=== PATIENT | female | born 1960 | race Caucasian/White ===

== ENCOUNTER 2018-07-06 12:06 | Observation (INO) | payer SELFPAY ==
[2018-07-06 12:29] LABS: #Eosinphils 0.1 thou/uL (0.0-0.7); #Lymphocytes 2.6 thou/uL (1.20-3.40); #Monocytes 0.5 thou/uL (0.11-0.59); #Neutrophils 4.9 thou/uL (1.40-6.50); %Basophils 0.4 % (0.0-1.0); %Eosinophils 1.1 % (0.0-10.0); %Lymphocytes 32.2 % (21.0-51.0); %Monocytes 6.4 % (0.0-10.0); %Neutrophils 59.8 % (42.0-75.0); Hemoglobin 12.4 g/dL (12.0-16.0); Mean Corpuscular HGB CONC 32.7 g/dL (32.0-36.0); Mean Corpuscular Hemoglobin 30.2 pg (27.0-31.0); Mean Corpuscular Volume 92.3 fL (78.0-98.0); Mean Platelet Volume 8.1 fL (7.4-10.4); Platelet Count 270 thou/uL (130-400); RBC Distribution Width 11.6 % (11.5-14.5); Red Blood Cell (RBC) Count 4.12 mill/uL (4.20-5.40); White Blood Cell (WBC) Count 8.2 thou/uL (4.8-10.8)
[2018-07-06 12:34] LABS: INR-International Normal Ratio 0.9; PTT 26.8 SEC (22.9-36.1); Prothrombin Time 12.4 SEC (12.0-14.7)
[2018-07-06 13:15] LABS: Albumin 4.4 g/dL (3.5-5.0)
[2018-07-06 13:16] LABS: Calcium 9.4 mg/dL (7.8-10.44); Chloride 105 mmol/L (98-107); Potassium 3.5 mmol/L (3.5-5.1); Sodium 140 mmol/L (136-145)
[2018-07-06 13:17] LABS: Globulin 3.2 g/dL (2.4-3.5); Glucose 111 mg/dL (70-105); Protein, Total 7.6 g/dL (6.0-8.3)
[2018-07-06 13:19] LABS: Anion Gap 16 mmol/L (10-20); Bilirubin, Total 0.4 mg/dL (0.2-1.2); Carbon Dioxide 23 mmol/L (22-29)
[2018-07-06 13:20] LABS: Alkaline Phosphatase 69 U/L (40-150); Calc. Creatinine Clearance 0 mL/min (70-130); Estimated GFR-MDRD 64
[2018-07-06 13:21] LABS: BUN (Urea Nitrogen) 13 mg/dL (9.8-20.1)
[2018-07-06 13:22] LABS: AST (SGOT) 16 U/L (5-34)
[2018-07-06 13:23] LABS: ALT (SGPT) Less than 7 U/L (8-55); CK (CPK) 326 U/L (29-168)
--- NOTE | 2018-07-06 13:39 | CT ---
CT BRAIN: DATE: 07/06/2018. PROVIDED CLINICAL HISTORY: Right-sided facial droop and slurred speech. FINDINGS: Comparison 11/22/2016. The ventricular system appears normal in size and morphology. There is no ash dence for intracranial hemorrhage or mass effect. Chronic microvascular ischemic changes involving t he cerebral white matter appear similar to the prior study. The extracranial soft tissues and osseou s structures demonstrate an unremarkable CT appearance. IMPRESSION: No evidence for intracranial hemorrhage or mass effect. Findings communicated to Dr. Escobar at 12:28 p.m. 07/06/2018. CODE CR POS: VIK
--- NOTE | 2018-07-06 13:53 | CT ---
CT ANGIOGRAM GREAT VESSELS NECK WITH IV CONTRAST AND 3D MIP RECONSTRUCTIONS CT ANGIOGRAM BRAIN WITH IV CONTRAST AND 3D MIP RECONSTRUCTIONS: PROVIDED CLINICAL HISTORY: Slurred speech and facial droop. FINDINGS: There is a common origin of the innominate and left common carotid arteries. The great vessels demon strate an otherwise unremarkable CT angiographic appearance. No evidence for significant stenosis. Multiple right-sided thyroid lobe nodules are seen, the largest at the superior pole measuring about 1.4 cm. The visualized lung apices appear clear. CT angiogram of the brain demonstrates no evidence for focal vessel stenosis, branch occlusion, or an eurysm. IMPRESSION: 1. Normal CT angiogram of the great vessels of the neck. 2. Normal CT angiogram of the brain. 3. Right-sided thyroid lobe nodules for which nonemergent thyroid ultrasound is recommended. Results discussed with Dr. Escobar via telephone 12:33 p.m. 07/06/2018. CODE CR POS: OG
[2018-07-06 14:04] LABS: Bilirubin Negative (Negative); Blood, Urine Negative (Negative); Clarity CLEAR (Clear); Glucose, Urine (Dipstick) Negative (Negative); Leukocyte Negative (Negative); Nitrite Negative (Negative); Protein, Urine (Dipstick) Negative (Neg-Trace); Specific Gravity, Urine 1.013 (1.002-1.036); Urobilinogen 0.2 mg/dL (0.2-1.0)
[2018-07-06 14:12] LABS: Amphetamine Not Detected (NotDetected); Barbiturates Screen Not Detected (NotDetected); Benzodiazepine Screen Not Detected (NotDetected); Cocaine Metabolite Screen Not Detected (NotDetected); Medtox Control Line Valid? VALID (VALID); Medtox Reader # READER 4; Methadone Not Detected (NotDetected); Methamphetamine Not Detected (NotDetected); Opiate Screen Not Detected (NotDetected); Oxycodone Screen Not Detected (NotDetected); Phencyclidine (PCP) Not Detected (NotDetected); THC/Cannabinoid Screen Not Detected (NotDetected); Tricyclic Screen Not Detected (NotDetected)
[2018-07-06] MEDS ORDERED: ISOVUE-370 76%-LOCM 1 ML ONE (14:12)
[2018-07-06] MEDS ORDERED: Aspirin Chewable 81 MG TAB ONE (14:26)
[2018-07-06 16:30] VITALS: BMI 31.8
[2018-07-06] MEDS: Sodium Chloride 0.9% 1,000 ML IV SCH (16:53)
[2018-07-06] MEDS ORDERED: Ondansetron PF 4 MG/2 ML Vial IVP PRN (17:15)
[2018-07-06] MEDS ORDERED: Ondansetron ODT 4 MG TAB PO PRN (17:15)
[2018-07-06] MEDS ORDERED: Acetaminophen 325 MG TAB PO PRN (17:15)
--- NOTE | 2018-07-06 18:04 | HP ---
CHIEF COMPLAINT: High blood pressure and right facial droop. HISTORY OF PRESENT ILLNESS: Ms. Smart is a pleasant 58-year-old woman with a background history of CVA two years ago, who states she came in due to her daughter being concerned about her blood pressure being high. Blood pressure at home was in the 150s systolic. The patient denies any associated symptoms such as headaches, dizziness, or blurred vision. According to the ED note, the family had noticed a right-sided facial droop. However, the patient insists this is her normal baseline since the previous stroke. She states she often has difficulties with her speech being slow, but states this is not new for her. The floor nurse did confirm with the patient's daughter that her speech is at baseline. The right side of her face seemed to be drooping more than usual, particularly the right eyelid. At this present time, the patient is without any complaints. She denies having any headache. Denies any dizziness. Has not been unwell in recent days. She follows with a primary care physician at [facility]. According to the family, she has not been taking her antihypertensives. It was confirmed by her records that she has not refilled her medicines in approximately 6 months. The patient insists that she does check her blood pressure at home and takes her antihypertensives. REVIEW OF SYSTEMS: The patient denies any fevers, chills, or sweats. Denies having again any headaches or dizziness. No blurred vision. Per patient, no speech changes. She does have some slow and at times slurred speech, but this is at baseline. No nausea or vomiting. No chest pain, palpitations, or shortness of breath. No abdominal pain or cramping. She reports moving her bowels as normal. Denies having any urinary symptoms. All other review of systems are negative. ALLERGIES: 1. CODEINE. 2. SULFA. CURRENT MEDICATIONS: Per family and record, she is noncompliant with her antihypertensives. She should be on; 1. Amlodipine 5 mg p.o. daily. 2. Lisinopril 20 mg p.o. daily. 3. Metoprolol 75 mg p.o. twice daily. PAST MEDICAL HISTORY: 1. Previous CVA x2 years ago. 2. Hypertension. 3. Noncompliance with medications. 4. Personality disorder. PAST SURGICAL HISTORY: Tubal ligation. SOCIAL HISTORY: The patient lives alone. Denies any alcohol use, tobacco use, or illicit drug use. PHYSICAL EXAMINATION: GENERAL: The patient appears well developed, well nourished, and is in no acute distress. VITAL SIGNS: Temperature 98.5, pulse 60, respirations 20, O2 saturation 98% on room air, and BP 162/83. HEENT: Normocephalic and atraumatic. Pupils are equal, round, and reactive to light. Oropharynx is clear. NECK: Supple. No lymphadenopathy. There is notable drooping to the right side of her face including a slight droop to the right corner of the mouth and the right eyelid. Per patient, facial sensation is intact. Slight droop with smiling on the right. Otherwise, facial movements intact. LUNGS: Clear to auscultation bilaterally. CARDIAC: Regular rate and rhythm without audible murmurs, rubs, or gallops. ABDOMEN: Soft, nontender, nondistended. Normoactive bowel sounds present. No renal angle tenderness. No guarding or rigidity. EXTREMITIES: Power 5/5 in all limbs. The patient's sensation is intact in all limbs and equal bilaterally. No edema or calf tenderness or swelling. NEUROLOGIC: Alert and oriented x3. No focal neurology except for right facial drooping which per patient states that is chronic. No tongue deviation. No cerebellar signs. SKIN: Without rash or jaundice. LABORATORY DATA: White blood count 8.2, hemoglobin 12.4, hematocrit 38, platelets 270. Coags unremarkable. Sodium 140, potassium 3.5, BUN 13, creatinine 0.90, GFR 64, glucose 111, total bilirubin 0.4, AST 16, ALT less than 7, alkaline phosphatase 69, CK 326. Troponin 1-. Albumin 4.4. Urinalysis negative. Urine tox screen negative. IMAGING DATA: 1. CT brain, 07/06/2018. No evidence for intracranial hemorrhage or mass effect. 2. CT angiogram of head and neck, 07/06/2018. Normal CT angiogram of the great vessels of the neck and brain. There was right-sided thyroid lobe nodules for which nonemergent thyroid ultrasound was recommended. 3. Last echo was done in November 2016 showing an EF of 50% to 55% with overall normal left ventricular function. Left atrium mildly dilated. Mild mitral regurgitation and mild tricuspid regurgitation present. IMPRESSION AND PLAN: Ms. Smart is a very pleasant 58-year-old woman who is being admitted for management of the following; 1. Right facial droop worse than baseline. Imaging studies completed thus far including CT of the brain and CT angiogram of the head and neck are unremarkable. The patient awaiting MRI of the brain. Per patient, she is at her baseline. However, daughter reported to the floor nurse that she has new droop to the right eyelid and the right lip seems to be drooping more than normal. I have left a voice mail to her daughter, Dorothea Garcia to obtain history as the patient denies any symptoms at this present time or earlier today. 2. Hypertension, uncontrolled due to noncompliance. Per patient, she continues checking her blood pressure and taking medicines at home. However, it appears that she has not filled her medications in 6 months. She also seems to be taking her blood pressure medicines p.r.n. rather than scheduled. At the moment, her blood pressure is 162/83. We will resume her home medications and monitor her blood pressure. 3. Gastrointestinal prophylaxis. 4. Deep venous thrombosis prophylaxis with mechanical SCDs. 5. Full code status. Surrogate decision maker is her daughter, Dorothea Garcia. The patient's case was discussed with Dr. Boo, who agrees with plan of care as described above. Job ID: [id number]
[2018-07-06] MEDS: Metoprolol Tartrate 50 MG TAB PO SCH (20:37)
[2018-07-06] MEDS: Famotidine/PF 20 mg/2ml Vial SLOW IVP SCH (20:39)
[2018-07-07] MEDS: Sodium Chloride 0.9% 1,000 ML IV SCH ×2 (03:52→13:49)
[2018-07-07 06:10] LABS: #Basophils 0.1 thou/uL (0.0-0.2); #Eosinphils 0.2 thou/uL (0.0-0.7); #Lymphocytes 2.7 thou/uL (1.20-3.40); #Monocytes 0.5 thou/uL (0.11-0.59); #Neutrophils 2.9 thou/uL (1.40-6.50); %Basophils 0.8 % (0.0-1.0); %Lymphocytes 42.8 % (21.0-51.0); %Monocytes 7.5 % (0.0-10.0); %Neutrophils 45.9 % (42.0-75.0); Hemoglobin 11.5 g/dL (12.0-16.0); Mean Corpuscular HGB CONC 31.5 g/dL (32.0-36.0); Mean Corpuscular Hemoglobin 29.6 pg (27.0-31.0); Mean Corpuscular Volume 94.1 fL (78.0-98.0); Platelet Count 245 thou/uL (130-400); RBC Distribution Width 11.8 % (11.5-14.5); Red Blood Cell (RBC) Count 3.87 mill/uL (4.20-5.40); White Blood Cell (WBC) Count 6.4 thou/uL (4.8-10.8)
[2018-07-07 06:33] LABS: Anion Gap 12 mmol/L (10-20); BUN (Urea Nitrogen) 11 mg/dL (9.8-20.1); CK (CPK) 289 U/L (29-168); Calc. Creatinine Clearance 98 mL/min (70-130); Carbon Dioxide 27 mmol/L (22-29); Cardiac Risk 3.8 (Less than 4.5); Chloride 107 mmol/L (98-107); Cholesterol 184 mg/dl (< 200 Desired); Estimated GFR-MDRD 68; Glucose 88 mg/dL (70-105); HDL Cholesterol 49 mg/dL (>60 Neg Risk); LDL Cholesterol, Calculated 122 mg/dL; Potassium 4.6 mmol/L (3.5-5.1); Sodium 141 mmol/L (136-145); Triglycerides 67 mg/dL (Less than 150)
[2018-07-07] MEDS: Metoprolol Tartrate 50 MG TAB PO SCH (08:40)
[2018-07-07] MEDS: Famotidine/PF 20 mg/2ml Vial SLOW IVP SCH (08:41)
[2018-07-07] MEDS ORDERED: Amlodipine 5 MG TAB PO SCH (09:00)
[2018-07-07] MEDS ORDERED: Aspirin 81 mg Enteric Coated Tablet PO SCH (09:00)
[2018-07-07] MEDS ORDERED: Lisinopril 20 MG TAB PO SCH (09:00)
[2018-07-07 11:47] VITALS: BP 136/85; TEMP 98
--- NOTE | 2018-07-07 13:01 | MRI ---
MRI BRAIN WITHOUT CONTRAST: 07/07/2018 HISTORY: Right-sided facial droop and slurred speech. Assess for acute infarction. COMPARISON: 11/23/2016 TECHNIQUE: Multiplanar, multisequence MR imaging of the brain provided without contrast media. FINDINGS: The diffusion-weighted imaging demonstrates no evidence for acute infarction. Gradient echo imaging demonstrates numerous foci of blooming artifact, suggesting areas of prior hemorrhage, including jacinto ventricular white matter on the left, the region of the caudate head on the right, and the region of the putamen on the right, similar when compared to prior imaging. Numerous additional foci of bloomi ng artifact within the basal ganglia and posterior fossa suggest areas of microhemorrhage as well. T here is multifocal periventricular, deep, and subcortical white matter T2 and FLAIR hyperintensity, e vidence of significant stable small vessel disease. There is mild mucosal thickening of the ethmoid air cells bilaterally, as well as the right maxillary sinus. No midline shift, mass effect, or ventr icular enlargement. Arterial flow voids, at the axial level of the skull base, appear grossly unrema rkable on the T2 weighted imaging. Regional bone marrow signal intensity appears within normal limit s. IMPRESSION: 1. No magnetic resonance evidence of acute infarction. 2. Stable brain MRI, as detailed above, demonstrating evidence of numerous prior micro-hemorrhages, as well as evidence of extensive small vessel disease. POS: OG
--- NOTE | 2018-07-07 23:58 | DIS ---
DATE OF ADMISSION: 07/06/2018 DATE OF DISCHARGE: 07/07/2018 ALLERGIES: CODEINE, SULFA. CHIEF COMPLAINT: High blood pressure and worsening right facial droop per family. FINAL DIAGNOSES: 1. Questionable transient ischemic attack, MRI, CT, and CTA negative for any acute findings. 2. Prior cerebrovascular accident 2 years ago. 3. Hypertension. 4. Medication noncompliance. PROCEDURES PERFORMED: None. LABORATORY RESULTS: White blood cell count 6.4, hemoglobin 11.5, hematocrit 36.4, and platelet count 245. PT 12.4, INR 0.9, and APTT 26.8. Sodium 141, potassium 4.6, chloride 107, carbon dioxide 27, anion gap 12, BUN 11, creatinine 0.85, and GFR 68. Troponin negative. Cholesterol 184, LDL 122, HDL 49, and triglycerides 67. UA negative. IMAGING RESULTS: Brain MRI, no magnetic resonance evidence of acute infarction. Stable brain MRI as detailed above, demonstrating evidence of numerous prior microhemorrhages as well as evidence of extensive small vessel disease, gradient echo imaging demonstrates numerous foci of blooming artifact suggesting areas of prior hemorrhage including periventricular white matter on the left, the region of the caudate head on the right and the region of the putamen on the right, similar when compared to prior imaging, numerous additional foci of blooming artifact within the basal ganglia and posterior fossa suggest areas of microhemorrhage as well. There is evidence of significant stable small-vessel disease. The CTA showed normal CT angiogram of the great vessels of the neck, normal CT angiogram of the brain and right-sided thyroid lobe nodule, for which nonemergent thyroid ultrasound recommended. Brain CT showed no evidence of acute intracranial hemorrhage or mass effect. CONSULTATIONS: None. HOSPITAL COURSE: Ms. Dee is a pleasant 58-year-old woman with a background history of CVA 2 years ago, who had come in at the behest of her daughter, who was concerned about high blood pressure readings at home with systolic over 150s, as well as increased right facial droop per the daughter. The patient reported no increasing deficits. She denied any headache or increased difficulties with her speech since her previous CVA. The patient was concerned about noncompliance. She does follow with a PCP at [facility]; however, it was confirmed that her antihypertensive medications have not been refilled in approximately 6 months. On arrival, CT outlined above showed no intracranial hemorrhage or mass effect. Her MRI was stable compared to her last brain MRI. Her antihypertensive regimen was reinstated, with good response in her blood pressure. This morning, she has no complaints to me. She denies chest pain or shortness of breath. She denies nausea or vomiting. She has ambulated around her room without issue. I have made multiple attempts to contact the patient's family and still awaiting a phone call back to explain imaging results. PHYSICAL EXAMINATION: VITAL SIGNS: Blood pressure 136/85, temperature 98 degrees Fahrenheit, pulse 63, and O2 saturation is 95% on room air. GENERAL: The patient is awake and alert, comfortable, no acute distress. HEENT: Atraumatic and normocephalic. NECK: No JVD. No lymphadenopathies. Supple. NEUROLOGIC: The patient does have a slight droop to the right corner of her mouth and right eyelid. Her facial sensation is intact. Very mild droop with smiling on the right; however, other facial movements intact. LUNGS: Clear to auscultation bilaterally. Regular respiratory rate and pattern. CV: S1, S2. Regular rate and rhythm. No appreciable murmurs, rubs, or gallops. GI: Soft, nontender. Normal bowel sounds. PERIPHERAL VASCULAR: No lower extremity edema. +2 DP pulses bilaterally. MUSCULOSKELETAL: No joint effusion or swelling. SKIN: Warm and dry. No skin discoloration. CONDITION AT DISCHARGE: Stable. DISCHARGE MEDICATIONS: 1. Amlodipine 5 mg tablet one tablet p.o. daily. 2. Aspirin 81 mg one tablet p.o. daily. 3. Atorvastatin 20 mg p.o. at bedtime, this is a new prescription for her. 4. Lisinopril 20 mg tablet one tablet p.o. daily. 5. Metoprolol tartrate 50 mg tablet 75 mg p.o. b.i.d. DISCHARGE DISPOSITION: Home. The patient will continue follow up with her PCP. She will continue her blood pressure regimen as prescribed and continue to monitor her blood pressure at home. She should continue outpatient followup with her neurologist, Dr. Lindsay as well. All care discussed with the patient at length. Job ID: [id number]
== END 2018-07-07 15:10 | disposition home or self-care (01) ==
LOC: ERS 12:06 → 2SE 16:13
PROVIDERS: ADMIT Internal Medicine; ATTEND Internal Medicine
DX: R29.810 Facial weakness (principal); I10 Essential (primary) hypertension; F60.9 Personality disorder, unspecified; E04.1 Nontoxic single thyroid nodule; Z86.73 Personal history of transient ischemic attack (TIA), and cerebral infarction without residual deficits; Z79.899 Other long term (current) drug therapy; Z88.2 Allergy status to sulfonamides; Z88.5 Allergy status to narcotic agent; Z91.14 Patient's other noncompliance with medication regimen
CPT/HCPCS: 36415; 36416; 70450; 70496; 70498; 70551; 80048; 80053; 80061; 80306; 81003; 82550; 83880; 84484; 85025; 85610; 85730; 93005; 96374; 96376; G0378; Q9966; S0028

== ENCOUNTER 2020-03-03 11:37 | Inpatient (IN) | payer MEDICARE, SELFPAY ==
[2020-03-03 11:55] LABS: #Eosinphils 0.1 thou/uL (0.0-0.7); #Lymphocytes 1.7 thou/uL (1.20-3.40); #Monocytes 0.3 thou/uL (0.11-0.59); #Neutrophils 6.1 thou/uL (1.40-6.50); %Basophils 0.6 % (0.0-1.0); %Lymphocytes 20.5 % (21.0-51.0); %Monocytes 3.9 % (0.0-10.0); %Neutrophils 74.1 % (42.0-75.0); Hemoglobin 12.9 g/dL (12.0-16.0); Mean Corpuscular HGB CONC 31.9 g/dL (32.0-36.0); Mean Corpuscular Hemoglobin 29.7 pg (27.0-31.0); Mean Corpuscular Volume 93.1 fL (78.0-98.0); Mean Platelet Volume 7.9 fL (7.4-10.4); Platelet Count 265 thou/uL (130-400); RBC Distribution Width 11.4 % (11.5-14.5); Red Blood Cell (RBC) Count 4.35 mill/uL (4.20-5.40); White Blood Cell (WBC) Count 8.3 thou/uL (4.8-10.8)
[2020-03-03 12:05] LABS: INR-International Normal Ratio 0.9; PTT 24.1 sec (22.9-36.1); Prothrombin Time 12.2 sec (12.0-14.7)
[2020-03-03 12:18] LABS: ALT (SGPT) 10 U/L (8-55); AST (SGOT) 27 U/L (5-34); Albumin 4.2 g/dL (3.5-5.0); Alkaline Phosphatase 68 U/L (40-110); Anion Gap 17 mmol/L (10-20); BUN (Urea Nitrogen) 19 mg/dL (9.8-20.1); Bilirubin, Total 0.5 mg/dL (0.2-1.2); CK (CPK) 529 U/L (29-168); Calc. Creatinine Clearance 0 mL/min (70-130); Calcium 9.7 mg/dL (7.8-10.44); Carbon Dioxide 26 mmol/L (22-29); Chloride 101 mmol/L (98-107); Estimated GFR-MDRD 60; Globulin 3.3 g/dL (2.4-3.5); Glucose 133 mg/dL (70-105); Potassium 3.2 mmol/L (3.5-5.1); Protein, Total 7.5 g/dL (6.0-8.3); Sodium 141 mmol/L (136-145)
--- NOTE | 2020-03-03 12:34 | CT ---
BRAIN CT WITHOUT IV CONTRAST: Date: 03/03/2020 HISTORY: Left-sided weakness. Last seen normal at 6:00 PM last night. Slurred speech and left-sided facial sharron op. COMPARISON: 07/06/2018. FINDINGS: There are some chronic white matter ischemic changes and some small old lacunar infarct changes bilat erally in the basal ganglia. No mass or midline shift. No intra or extra-axial hemorrhage. IMPRESSION: Atrophy, chronic white matter ischemic changes, and multiple bilateral basal ganglia lacunar infarct changes. No mass, bleed, or other acute process. Stable from 07/06/2018. Findings were discussed with Dr. Escobar in the emergency room at 1158 hours. CODE CR. POS: RRHellen
--- NOTE | 2020-03-03 12:41 | CT ---
CTA HEAD WITH CONTRAST CTA NECK WITH CONTRAST: Axial tomograms obtained through head and neck following angio protocol with multiplanar reconstructi on and 3D postprocessing. INDICATION: Stroke protocol. Left-sided weakness. Comparison made to CTA head dated 07/06/2018. FINDINGS: CTA HEAD: Intracranial internal carotid arteries are patent and symmetric. Cavernous ICAs are patent. Both middle cerebral arteries are patent and symmetric. M1 segments show no significant stenosis. Ant erior cerebral arteries are patent. Basilar artery is patent. Both posterior cerebral arteries show origin and are symmetric. IMPRESSION: No evidence of proximal middle cerebral artery stenosis or occlusion. CTA head unremarkable. CTA NECK: No evidence of stenosis at the origin of the arch vessels. Common carotid arteries are patent and sym metric. Carotid bifurcations are patent. Extracranial internal carotid arteries are patent and symmet gentry. No significant atherosclerotic change. Vertebral arteries are patent. There are thyroid nodules with a predominant nodule in the right thyroid. This was described on prior exam, without significant interval change. IMPRESSION: 1. Unremarkable CTA neck. 2. Multinodular thyroid with at least two dominant nodules in the right lobe of the thyroid. These t hyroid nodules are described on exam of 06/16/2018, without significant interval change apparent.
[2020-03-03] MEDS ORDERED: Labetalol HCl 100 MG/20 ML VIAL ONE (13:11)
[2020-03-03] MEDS ORDERED: Aspirin 325 MG TAB ONE (13:11)
[2020-03-03] MEDS ORDERED: Iopamidol-370 76% 500 ML 1 ML ONE (14:36)
[2020-03-03 15:23] VITALS: BMI 35.6
[2020-03-03] MEDS ORDERED: Ondansetron ODT 4 MG TAB SL PRN (15:30)
[2020-03-03] MEDS ORDERED: Ondansetron PF 4 MG/2 ML Vial IVP PRN (15:30)
[2020-03-03] MEDS ORDERED: Acetaminophen 325 MG TAB PO PRN (15:30)
[2020-03-03 17:42] LABS: SARS-CoV-2 MS2 Positive; SARS-CoV-2 N Gene Negative; SARS-CoV-2 S Gene Negative; SARS-CoV-2 by NAA Not Detected (NotDetected); SARS-CoV-2 orf1ab Negative
--- NOTE | 2020-03-03 20:01 | PDOC.HHP ---
Hospitalist HPI - History of Present Illness History of Present Illness: ADMISSION DATE: 03/03/2020 TIME OF ASSESSMENT: 1600 PRIMARY CARE PHYSICIAN: [facility] CHIEF COMPLAINT: High blood pressure HPI: The patient is a 59-year-old female past medical history significant for CVA and high blood pressure. She also has a history of noncompliance. Patient presented to the ER after a fall and hitting her head. EMS arrived and found the patient had left-sided weakness with slurred speech. Her daughter states that she had a previous stroke with left-sided weakness and slurred speech but this was now more pronounced. EMS also noted her blood pressure at 210/130. She was given sublingual nitro and nitro patch. Patient denies any chest pain, abdominal pain, contact with sick persons, shortness of breath, fevers. ED COURSE: Today in the ER they completed lab work, EKG, brain CT without contrast, CTA of the head and neck with contrast. VITAL SIGNS Ivelisse Mar 03, 2020 11:43 VIVI Real Rebecca BP: 148/119, Pulse: 106, Resp: 20, Temp: 98.3 (Oral), Pain: 5, O2 sat: 98 on (Room Air), Time: 03/03/2020 11:43. VITAL SIGNS Ivelisse Mar 03, 2020 12:50 VIVI Real Rebecca BP: 152/86, Pulse: 80, Resp: 18, Pain: 5, O2 sat: 98 on (Room Air), Time: 03/03/2020 12:50. VITAL SIGNS [facility] Mar 03, 2020 13:07 VIVI Real Rebecca BP: 188/89, Pulse: 81, Resp: 18, Pain: 5, O2 sat: 98 on (Room Air), Time: 03/03/2020 13:07. VITAL SIGNS Ivelisse Mar 03, 2020 13:16 VIVI Real Rebecca BP: 148/79, Pulse: 71, Resp: 19, Pain: 5, O2 sat: 97 on (Room Air), Time: 03/03/2020 13:16. VITAL SIGNS Ivelisse Mar 03, 2020 14:02 VIVI Real Rebecca BP: 141/86, Pulse: 76, Resp: 19, Temp: 98.2 (Oral), Pain: 4, O2 sat: 95 on (Room Air), Time: 03/03/2020 14:02 PAST MEDICAL HISTORY: Ischemic CVA, hypertension, noncompliance, chronic delusional disorder PAST SURGICAL HISTORY: Tubal ligation SOCIAL HISTORY: Patient lives alone. She denies any alcohol use, drug use, smoking history. ALLERGIES: Codeine, sulfa CURRENT MEDICATIONS: Lisinopril 20 mg daily, metoprolol tartrate 75 mg p.o. twice daily Hospitalist ROS - Review of Systems Musculoskeletal: reports: shoulder pain Neurological: reports: change in speech All other systems reviewed; all pertinent +/- noted in HPI/Subj - Exam General Appearance: NAD, awake alert Neck: supple Heart: RRR, no murmur, no gallops, no rubs, normal peripheral pulses Respiratory: CTAB, no wheezes, no rales, no ronchi, normal chest expansion Gastrointestinal: soft, non-tender, non-distended, normal bowel sounds Neurological: facial droop, speech deficit (pressured speech) Musculoskeletal - other findings: left side weakness, poss due to shoulder pain Psychiatric: normal affect, normal behavior, A&O x 3 Hospitalist Results - Labs Result Diagrams: 03/03/20 11:46 03/03/20 11:46 Lab results: WBC 8.3 thou/uL (4.8-10.8) 03/03/20 11:46 Hgb 12.9 g/dL (12.0-16.0) 03/03/20 11:46 Hct 40.5 % (36.0-47.0) 03/03/20 11:46 MCV 93.1 fL (78.0-98.0) 03/03/20 11:46 Plt Count 265 thou/uL (130-400) 03/03/20 11:46 Neutrophils % 74.1 % (42.0-75.0) 03/03/20 11:46 Sodium 141 mmol/L (136-145) 03/03/20 11:46 Potassium 3.2 mmol/L (3.5-5.1) L 03/03/20 11:46 Chloride 101 mmol/L (98-107) 03/03/20 11:46 Carbon Dioxide 26 mmol/L (22-29) 03/03/20 11:46 BUN 19 mg/dL (9.8-20.1) 03/03/20 11:46 Creatinine 0.95 mg/dL (0.6-1.1) 03/03/20 11:46 Glucose 133 mg/dL (70-105) H 03/03/20 11:46 Calcium 9.7 mg/dL (7.8-10.44) 03/03/20 11:46 Total Bilirubin 0.5 mg/dL (0.2-1.2) 03/03/20 11:46 AST 27 U/L (5-34) 03/03/20 11:46 ALT 10 U/L (8-55) 03/03/20 11:46 Alkaline Phosphatase 68 U/L (40-110) 03/03/20 11:46 Creatine Kinase 529 U/L (29-168) H 03/03/20 11:46 Troponin I 0.010 ng/mL (< 0.028) 03/03/20 11:46 Serum Total Protein 7.5 g/dL (6.0-8.3) 03/03/20 11:46 Albumin 4.2 g/dL (3.5-5.0) 03/03/20 11:46 - EKG Interpretation EKG: SR LVH 80bpm - Radiology Interpretation CT scan - head Status: report reviewed by me Additional Comment: Brain CT w/o contrast IMPRESSION: Atrophy, chronic white matter ischemic changes, and multiple bilateral basal ganglia lacunar infarct changes. No mass, bleed, or other acute process. Stable from 07/06/2018. Head CTA IMPRESSION: 1. Unremarkable CTA neck. 2. Multinodular thyroid with at least two dominant nodules in the right lobe of the thyroid. These thyroid nodules are described on exam of 06/16/2018, without significant interval change apparent. Neck CTA IMPRESSION: 1. Unremarkable CTA neck. 2. Multinodular thyroid with at least two dominant nodules in the right lobe of the thyroid. These thyroid nodules are described on exam of 06/16/2018, without significant interval change apparent Hospitalist H&P A/P - Plan Plan: #TIA Neuro consult in a.m. Echo, MRI ordered A1c, magnesium, TSH, UA ordered with FLP in a.m. Neuro checks every 4 hours, NIH every shift Symptoms appeared to resolve once blood pressure began to come down #Hypertensive emergency Restart home medications As needed antihypertensives in place Vital signs every 4 or more frequently if needed VTE prophylaxis in place with Lovenox Restart home medications CODE STATUS: Full Surrogate decision-maker is her daughter Dorothea Garcia Patient discussed with
[2020-03-03] MEDS ORDERED: hydrALAZINE 20 MG/ML VIAL SLOW IVP PRN (20:07)
[2020-03-03] MEDS ORDERED: Labetalol HCl 100 MG/20 ML VIAL SLOW IVP PRN (20:07)
[2020-03-03] MEDS: Atorvastatin Calcium 40 MG TAB PO SCH (21:35)
[2020-03-04 02:02] LABS: Bilirubin Negative (Negative); Blood, Urine Negative (Negative); Clarity Clear (Clear); Glucose, Urine (Dipstick) Normal (Negative); Ketone, Urine Negative (Negative); Leukocyte 75 Leu/uL (Negative); Nitrite Negative (Negative); Protein, Urine (Dipstick) Negative (Neg-Trace); RBC/HPF 0-3 HPF (0-3); Specific Gravity, Urine 1.017 (1.002-1.036); Squamous Epithelial 0-3 HPF (0-3); Urobilinogen Normal mg/dL (Less than 2); pH, Urine 6.5 (5.0-9.0)
[2020-03-04 02:08] LABS: Bacteria/HPF 1+ HPF (None Seen)
[2020-03-04 05:35] LABS: #Basophils 0.1 thou/uL (0.0-0.2); #Eosinphils 0.2 thou/uL (0.0-0.7); #Monocytes 0.7 thou/uL (0.11-0.59); #Neutrophils 6.6 thou/uL (1.40-6.50); %Basophils 0.5 % (0.0-1.0); %Eosinophils 1.9 % (0.0-10.0); %Lymphocytes 20.7 % (21.0-51.0); %Neutrophils 69.9 % (42.0-75.0); Hemoglobin 12.3 g/dL (12.0-16.0); Mean Corpuscular HGB CONC 33.3 g/dL (32.0-36.0); Mean Corpuscular Hemoglobin 31.3 pg (27.0-31.0); Mean Corpuscular Volume 94.1 fL (78.0-98.0); Mean Platelet Volume 8.3 fL (7.4-10.4); Platelet Count 247 thou/uL (130-400); RBC Distribution Width 11.6 % (11.5-14.5); Red Blood Cell (RBC) Count 3.94 mill/uL (4.20-5.40); White Blood Cell (WBC) Count 9.5 thou/uL (4.8-10.8)
[2020-03-04 05:56] LABS: Anion Gap 15 mmol/L (10-20); BUN (Urea Nitrogen) 15 mg/dL (9.8-20.1); Calc. Creatinine Clearance 116 mL/min (70-130); Calcium 8.7 mg/dL (7.8-10.44); Carbon Dioxide 28 mmol/L (22-29); Cardiac Risk 3.1 (Less than 4.5); Chloride 102 mmol/L (98-107); Cholesterol 170 mg/dl (< 200 Desired); Estimated GFR-MDRD 74; Glucose 100 mg/dL (70-105); HDL Cholesterol 54 mg/dL (>60 Neg Risk); LDL Cholesterol, Calculated 95 mg/dL; Sodium 142 mmol/L (136-145); Triglycerides 103 mg/dL (Less than 150)
[2020-03-04] MEDS: Aspirin 325 mg Enteric Coated Tablet PO SCH (08:55)
[2020-03-04] MEDS: Enoxaparin Sodium 40 MG/0.4 ML SYRINGE SC SCH (08:55)
[2020-03-04] MEDS: Potassium Chloride 20 MEQ TAB PO SCH ×2 (09:45→12:53)
--- NOTE | 2020-03-04 12:05 | MRI ---
MRI BRAIN NONCONTRAST: DATE: 03/04/2020 HISTORY: 59-year-old female with TIA. Left-sided weakness. Dysarthria. Left facial droop. COMPARISON: 11/23/2016. FINDINGS: There is no obstructive hydrocephalus. There is no midline shift or any other evidence of mass effect . There is no extra-axial fluid collection. There are extensive, confluent T2-hyperintensities throughout the cerebral white matter consistent with moderate-severe chronic ischemic white matter ch anges due to microvascular atherosclerosis. There is no evidence of acute hemorrhage or restricted diffusion. There are Numerous tiny old insults in the bilateral meyer radiata and centrum semiovale, bilateral caudate nuclei and basal ganglia, bilateral thalami, brainstem (christiana), and bilateral cerebellar hemispheres, including dentate nuclei, many with hemosiderin stains. No major interval marshal nge. IMPRESSION: 1) no acute intracranial findings. 2) numerous tiny old insults in the bilateral deep cerebral white matter, bilateral corpus striatum, thalami, brainstem (christiana), and bilateral cerebellar hemispheres, many with hemosiderin stains. These probably represent a combination of multiple tiny old lacunar infarctions and multiple old prim keenan hemorrhages. 3) numerous other small hemosiderin stains elsewhere in the cerebrum, brainstem, and cerebellar hemis pheres. 4) this probably represents chronic hypertensive encephalopathy. The other, less likely possibility i s amyloid angiopathy. 5.) moderate-severe chronic ischemic white matter changes. 6) no acute infarction, or any other acute findings.
--- NOTE | 2020-03-04 12:19 | CON ---
NEUROLOGY CONSULTATION DATE OF CONSULTATION: 03/04/2020 REASON FOR CONSULTATION: Rule out CVA. HISTORY OF PRESENT ILLNESS: Ms. Smart is a 59-year-old female with medical history significant for prior CVA, hypertension and history of noncompliance, presented to the emergency room after a fall and hitting her head. The EMS arrived and found the patient had left-sided weakness with slurred speech and some confusion. The patient is not a good historian. History is taken from review of the medical records. Per records, the daughter stated to EMS that she had previous stroke with left-sided weakness and slurred speech, but the symptoms were more pronounced at the time she called the EMS. It was noted her blood pressure was 210/130 and she was given sublingual nitroglycerin and nitroglycerin patch and transferred to the [place] ED for further evaluation. In the emergency room, head CT was done, which was negative for acute intracranial pathology. CT of the head and neck was done, which was essentially unremarkable. The patient denies nausea, vomiting, headache, chest pain, abdominal pain, recent illness or recent exposure to COVID. The patient does admit of left-sided weakness and slurred speech, but according to her, this has not been changed from her baseline at this point. She does not remember the events from yesterday. REVIEW OF SYSTEMS: All systems reviewed and were negative except the pertinent positives and negatives mentioned in the HPI. PAST MEDICAL HISTORY: Prior CVA with residual dysarthria, left hemiparesis, hypertension, noncompliance, chronic delusional disorder. PAST SURGICAL HISTORY: Tubal ligation. SOCIAL HISTORY: The patient lives alone. Denies smoking, alcohol, illegal drug use. CURRENT MEDICATION: 1. Lisinopril 20 mg daily. 2. Metoprolol tartrate 75 mg p.o. b.i.d. ALLERGIES: NKDA PHYSICAL EXAMINATION: BP: 148/119, Pulse: 106, Resp: 20, Temp: 98.3 General Appearance: NAD, awake alert Neck: supple Heart: RRR, no murmur, no gallops, no rubs, normal peripheral pulses Respiratory: CTAB, no wheezes, no rales, no ronchi, normal chest expansion Gastrointestinal: soft, non-tender, non-distended, normal bowel sounds Neurological: f Mental status, the patient is alert and oriented to person, place, and time. She does have dysarthria. Cranial nerves 2-12 intact except 7, mild left facial droop and 10 dysarthria. Motor; muscle tone and bulk are normal. Strength, mild left hemiparesis, cerebellar decreased on the left secondary to weakness with superimposed shoulder pain. Sensory, withdraws to nailbed pressure bilaterally. Gait deferred due to patient's safety reasons. DATA REVIEWED: LABORATORY DATA: Data review reveal the labs which were significant for hypokalemia 3.2 and hyperglycemia 133. Lab results: WBC 8.3 thou/uL (4.8-10.8) 03/03/20 11:46 Hgb 12.9 g/dL (12.0-16.0) 03/03/20 11:46 Hct 40.5 % (36.0-47.0) 03/03/20 11:46 MCV 93.1 fL (78.0-98.0) 03/03/20 11:46 Plt Count 265 thou/uL (130-400) 03/03/20 11:46 Neutrophils % 74.1 % (42.0-75.0) 03/03/20 11:46 Sodium 141 mmol/L (136-145) 03/03/20 11:46 Potassium 3.2 mmol/L (3.5-5.1) L 03/03/20 11:46 Chloride 101 mmol/L (98-107) 03/03/20 11:46 Carbon Dioxide 26 mmol/L (22-29) 03/03/20 11:46 BUN 19 mg/dL (9.8-20.1) 03/03/20 11:46 Creatinine 0.95 mg/dL (0.6-1.1) 03/03/20 11:46 Glucose 133 mg/dL (70-105) H 03/03/20 11:46 Calcium 9.7 mg/dL (7.8-10.44) 03/03/20 11:46 Total Bilirubin 0.5 mg/dL (0.2-1.2) 03/03/20 11:46 AST 27 U/L (5-34) 03/03/20 11:46 ALT 10 U/L (8-55) 03/03/20 11:46 Alkaline Phosphatase 68 U/L (40-110) 03/03/20 11:46 Creatine Kinase 529 U/L (29-168) H 03/03/20 11:46 Troponin I 0.010 ng/mL (< 0.028) 03/03/20 11:46 Serum Total Protein 7.5 g/dL (6.0-8.3) 03/03/20 11:46 Albumin 4.2 g/dL (3.5-5.0) 03/03/20 11:46 - EKG Interpretation EKG: SR LVH 80bpm - Radiology Interpretation CT scan - head Status: report reviewed by me Additional Comment: Brain CT w/o contrast IMPRESSION: Atrophy, chronic white matter ischemic changes, and multiple bilateral basal ganglia lacunar infarct changes. No mass, bleed, or other acute process. Stable from 07/06/2018. Head CTA IMPRESSION: 1. Unremarkable CTA neck. 2. Multinodular thyroid with at least two dominant nodules in the right lobe of the thyroid. These thyroid nodules are described on exam of 06/16/2018, without significant interval change apparent. Neck CTA IMPRESSION: 1. Unremarkable CTA neck. 2. Multinodular thyroid with at least two dominant nodules in the right lobe of the thyroid. These thyroid nodules are described on exam of 06/16/2018, without significant interval change apparent ASSESSMENT AND PLAN: Ms. Arie Smart is a 59-year-old female with history significant for hypertension, prior cerebrovascular accident and noncompliance, presented with worsening left-sided weakness and slurred speech in the setting of hypertensive emergency, most likely transient ischemic attack; However seizure also cannot be ruled out, because the patient has no recollection of the events, so there is a component of altered mental status associated with her symptoms. Consider EEG to rule out cortical irritability. MRI of the brain to assess for acute intracranial process. 2D echo to evaluate for left ventricular ejection fraction. Head CT reviewed, which was negative for acute intracranial pathology. Old basal ganglia infarcts were seen, most likely secondary to hypertension. CT of the head and neck did not reveal any hemodynamically significant stenosis. Start aspirin and statin for secondary stroke prevention. Permissive control of blood pressure at this time. Strict control of blood glucose. Check hemoglobin A1c, TSH and fasting lipid panel. Neuro checks every 4 hours. Continue home medications. Continue medical management per primary team. Deep venous thrombosis prophylaxis. We will continue to follow. Thank you for the consult. Job ID: [id number] [facility]PITALLizbeth
[2020-03-04] MEDS ORDERED: Labetalol HCl 100 MG/20 ML VIAL SLOW IVP PRN (15:24)
[2020-03-04] MEDS ORDERED: Labetalol HCl 100 MG/20 ML VIAL SLOW IVP SCH (15:30)
--- NOTE | 2020-03-04 15:30 | PDOC.EEG ---
Neurology EEG Report - Report Report: This EEG was performed using 24 channel bitFlyer video digital EEG machine with 24 disc electrodes. This was an extended 2-hour 5 minutes of inpatient video EEG recording. Digital analysis of the EEG was done for Dougie and seizure detection which revealed no abnormalities Background: The posterior background rhythm is not observed Hyperventilation: Not performed. Photic stimulation. No response EEG diagnosis: Absence of posterior background rhythm. Clinical interpretation: This EEG is consistent with mild generalized nonspecific cerebral dysfunction.
[2020-03-04] MEDS ORDERED: Enalaprilat Dihydrate 1.25 MG/ML VIAL SLOW IVP PRN (17:26)
[2020-03-04] MEDS ORDERED: cloNIDine 0.1 MG TAB PO PRN (17:27)
[2020-03-04] MEDS ORDERED: Enalaprilat Dihydrate 1.25 MG/ML VIAL SLOW IVP SCH (17:30)
[2020-03-04] MEDS ORDERED: cloNIDine 0.1 MG TAB PO SCH (17:30)
--- NOTE | 2020-03-04 17:32 | PDOC.HOSPP ---
- Subjective Encounter Date: 03/04/20 Encounter Time: 17:30 Subjective: Patient seen for follow-up regarding hypertensive emergency. Denies chest pain or shortness of breath. - Objective Vital Signs & Weight: Vital Signs (12 hours) Temp Pulse Resp BP BP Pulse Ox 03/04/20 17:15 192/106 H 03/04/20 16:24 98.1 F 74 13 93 L 03/04/20 15:50 209/99 H 03/04/20 12:17 97.3 F L 72 23 H 220/100 H 96 03/04/20 08:39 98.2 F 70 20 219/100 H 94 L Weight Weight 214 lb Result Diagrams: 03/04/20 04:30 03/04/20 04:30 Additional Labs: Accuchecks 03/03/20 11:44 POC Glucose 128 H I reviewed patient's labs and MAR EKG Reviewed by me: Yes (Normal sinus rhythm on telemetry) Hospitalist ROS - Review of Systems Cardiovascular: denies: chest pain, palpitations, orthopnea, paroxysmal noc. dyspnea, edema, light headedness Gastrointestinal: denies: nausea, vomiting, abdominal pain, diarrhea, constipation, melena, hematochezia - Medication Medications: Active Medications Generic Name Dose Route Start Last Admin Trade Name Freq PRN Reason Stop Dose Admin Aspirin 325 mg 03/04/20 09:00 03/04/20 08:55 Aspirin 325 Mg Enteric Coated Tablet PO 325 mg DAILY TESFAYE Administration Atorvastatin Calcium 40 mg 03/03/20 21:00 03/03/20 21:35 Atorvastatin Calcium 40 Mg Tab PO 40 mg HS TESFAYE Administration Enoxaparin Sodium 40 mg 03/04/20 09:00 03/04/20 08:55 Enoxaparin Sodium 40 Mg/0.4 Ml Syringe SC 40 mg 0900 TESFAYE Administration Labetalol HCl 20 mg 03/04/20 15:30 03/04/20 15:50 Labetalol Hcl 100 Mg/20 Ml Vial SLOW IVP 03/04/20 18:00 4 ml NOW TESFAYE Administration Sodium Chloride 10 ml 03/03/20 20:07 03/03/20 21:35 Flush - Normal Saline 10 Ml Syringe IVF 10 ml PRN PRN Administration Saline Flush - Exam General Appearance: awake alert Eye: anicteric sclera ENT: moist mucosa Neck: supple Heart: RRR Respiratory: CTAB Gastrointestinal: soft, non-tender Skin: no rashes Neurological: cranial nerve grossly intact, normal sensation to touch, no weakness Psychiatric: normal affect, normal behavior Hosp A/P - Plan -Assessment/plan #Hypertensive emergency Blood pressures are still elevated, start as needed IV Vasotec, as needed oral clonidine. #TIA Suspected. Nil acute on MRI. 2D echo result pending. Appreciate neurology service input.
[2020-03-04] MEDS: Atorvastatin Calcium 40 MG TAB PO SCH (21:18)
--- NOTE | 2020-03-05 08:32 | RAD ---
Right shoulder 3 views HISTORY: Fall. Injury. FINDINGS: Acromioclavicular and glenohumeral alignment are maintained. Mild osteophytosis. No acute fracture, dislocation, or aggressive osseous. IMPRESSION : Mild osteoarthritic changes right shoulder. No acute osseous abnormalities are demonstrated.
--- NOTE | 2020-03-05 08:33 | RAD ---
Right wrist 3 views HISTORY: Fall. Injury. FINDINGS: Scaphoid waist and ulnar styloid are intact. Ulna negative variant is noted. Joint space na rrowing, osteophytosis, and subchondral sclerosis at the first carpometacarpal joint. Radiopaque tubing overlying the wrist has the appearance of IV catheter. No acute fracture or dislocation. IMPRESSION : Osteoarthritis right first carpometacarpal joint. No acute osseous abnormalities are demonstrated.
--- NOTE | 2020-03-05 08:40 | RAD ---
Right hand 4 views HISTORY: Injury. FINDINGS: Moderate osteophytosis throughout the hand and wrist. Mild joint space narrowing. Well-yocasta icated margins involving fragmented osteophytes at the interphalangeal joint of the thumb. No acute fracture, dislocation, or aggressive osseous erosions evident. IMPRESSION : Osteoarthritic changes throughout the hand. No acute osseous abnormalities are demonstrated.
--- NOTE | 2020-03-05 08:41 | RAD ---
Right hip 2 views HISTORY: Hip pain. FINDINGS: Joint space is preserved. Mild osteophytosis and subchondral sclerosis. Femoral head contou r is maintained. Degenerative changes of the sacroiliac joint also apparent. No acute fracture or dislocation. IMPRESSION : Mild osteoarthritic changes right hip.
--- NOTE | 2020-03-05 08:43 | RAD ---
AP pelvis one view HISTORY: Pain. FINDINGS: Sacral alae and pelvic rings are intact. Mild osteoarthritic changes of the hips and sacroi liac joints are evident. No acute fracture or dislocation. Phleboliths overlie the lower pelvis. IMPRESSION : No acute osseous abnormalities are demonstrated.
[2020-03-05] MEDS ORDERED: Metoprolol Tartrate 50 MG TAB PO SCH (09:00)
[2020-03-05] MEDS ORDERED: Lisinopril 20 MG TAB PO SCH (09:00)
[2020-03-05] MEDS: Enoxaparin Sodium 40 MG/0.4 ML SYRINGE SC SCH (09:07)
[2020-03-05] MEDS: Aspirin 325 mg Enteric Coated Tablet PO SCH (09:07)
[2020-03-05] MEDS: hydrALAZINE 25 MG TAB PO SCH ×2 (09:08→14:24)
[2020-03-05 15:57] VITALS: BP 157/83; TEMP 97.6
--- NOTE | 2020-03-05 17:27 | PDOC.DS.DS ---
Provider - Provider Date of Admission: 03/03/20 13:43 Date of Discharge: 03/05/20 Admitting Provider: Mart Cruz MD Consultations: Neurology Primary Care Physician: [facility] Clinic Course - Hospital Course Hospital Course: Ms. Arie Smart is a 59-year-old female whose medical history includes uncontrolled high blood pressure and notoriously noncompliant with medical therapy, she likely has some underlying mood disorder, she has had previous stroke in the past with residual left-sided weakness and slurred speech who was brought in here by family apparently due to worsening speech impediment and weakness on the left side. She was admitted for stroke evaluation. She has CT of the brain and CT angiogram of the head and neck and there was no acute findings. She did have evidence of old stroke on the CT but no acute findings. MRI brain also was negative for any acute intracranial findings. The patient was seen by neurology and she also underwent an EEG of the head that was nonspecific. During this visit patient has been refusing most of the antihypertensive drugs. She does not believe that she has the need to take all this pills according to her. However her blood pressure remains largely uncontrolled. It does not appear that she takes any of her medicines at home or takes them very sporadically. I saw and evaluated her earlier today and we discussed the need for compliance. She will need close follow-up at home. We will have case management set up home health with PT as well. She is discharged today with family. Resuscitation Status: 03/03/20 20:07 Resuscitation Status Routine Co-Sign Provider: Resuscitation Status: FULL: Full Resuscitation Discussed with: pt - Labs Lab Results: 03/04/20 04:30 03/04/20 04:30 Abnormal Lab Results - Last 48 hrs 03/03/20 00:30: Ur Leukocyte Esterase 75 A, Urine WBC 4-6 A, Amorphous Crystals Rare A, Urine Bacteria 1+ A 03/04/20 04:30: Potassium 3.0 L 03/04/20 04:30: RBC 3.94 L, MCH 31.3 H, Lymphocytes % 20.7 L, Neutrophils # 6.6 H, Monocytes # 0.7 H - Physical Exam Vitals: Vital Signs (12 hours) Temp Pulse Resp BP BP Pulse Ox 03/05/20 15:52 97.6 F 68 19 157/83 H 96 03/05/20 14:24 145/69 H 11/21/20 12:36 98.4 F 70 22 H 163/80 H 94 L 03/05/20 09:08 163/82 H 03/05/20 09:07 96 03/05/20 08:13 97.5 F L 63 18 91 L 03/05/20 07:26 162/83 H 03/05/20 05:47 189/84 H Weight Weight 214 lb Physical Exam: The patient was seen and examined on the day of discharge. Plan - Discharge Medications Prescriptions: hydrALAZINE [Apresoline] 75 mg PO TID #90 tab Atorvastatin Calcium [Lipitor] 40 mg PO HS #30 tab Home Medications: Medication Instructions Recorded Confirmed Type Lisinopril [Zestril] 20 mg PO DAILY #30 tab 07/07/18 03/03/20 Rx Metoprolol Tartrate [Lopressor] 75 mg PO BID #90 tab 07/07/18 03/03/20 Rx Aspirin [Ecotrin Regular Strength] 325 mg PO DAILY tab 03/05/20 Rx Atorvastatin Calcium [Lipitor] 40 mg PO HS #30 tab 03/05/20 Rx hydrALAZINE [Apresoline] 75 mg PO TID #90 tab 03/05/20 Rx Allergies: Sulfa (Sulfonamide Antibiotics) Allergy (Verified 11/22/16 23:08) - Discharge Instructions Activity:: Activity as Tolerated Nourishment:: Heart Healthy Diet Therapies:: Home Health Equipment/Supplies:: Not Applicable IV Therapy:: Not Applicable - Follow up Plan Referrals: [facility], [place] [Other] ([facility] will need to review referral information, verify insurance benefits and contact your primary care provider at [facility] before they are able to schedule your first home health visit. ) [facility] [Primary Care Provider] - (Call Saturday to schedule a follow-up appointment) Disposition: HOME HEALTH Quality - Care Measures CORE MEASURES:: Stroke/TIA, N/A - Stroke/TIA Did you prescribe antithrombotic therapy?: Yes Did you prescribe anticoagulant for A Fib/Flutter?: No Specify reason for no DC anticoagulant: Treatment not indicated Did you prescribe a statin medication?: Yes
--- NOTE | 2020-03-08 04:47 | PQF ---
CLINICAL DOCUMENTATION CLARIFICATION FORM: Dear : Bautista Wakefield Date / Time: 03/08/2020 7429 Please exercise your independent, professional judgment in responding to the clarification form. Clinical indicators are provided on the bottom of this form for your review Please check appropriate box(es) to clarify if the following diagnosis has been ruled in our ruled out: TIA [ x ] Ruled in diagnosis [ ] Continue to treat [x ] Resolved [ ] Ruled out diagnosis [ ] Improving [ ] Cannot rule out diagnosis [ ] Other diagnosis [ ] Unable to determine Physician Signature: Date/Time: For continuity of documentation, please document condition throughout progress notes and discharge summary. Thank You. To be completed by CDI/Coding staff for physician review: Present Clinical Indicators - Signs / Symptoms / Labs Results and Location in Medical Record [X] CT Brain Impression: Atrophy, chronic white matter ischemic changes, and mutiple bilateral ganglia lacunar infarct changes Imaging Dr José 03/03 [X] MRI Brain: No intracranial findings Imaging Dr Allen 03/04 [X] Compliant of high blood pressure H&P p1 03/03 [facility] [employer] [X] Her daughter states that she had a previous stroke with left sided weakness and slurred speech but this was now pronounced H&P p1 03/03 [facility] [employer]-[facility] [X] Hypertensive emergency H&P p4 03/03 [facility] [employer]-BC [X] TIA-symptoms appeared to resolve once blood pressure began to come down H&P p4 03/03 [facility] [employer]ICE-BC [X] old ganglian infarcts were seen most likely 2/[address] Zhang 03/04 [X] TIA suspected HNP p3 03/04 Dr Perdomo Present Risk Factors Results and Location in Medical Record [X] 59 year-old Female H&P p1 03/03 [facility] [employer]-BC [X] HTN H&P p1 03/03 [facility] [employer]PRENTICE-BC [X] Hx of CVA with residual of left sided weakness H&P p1 03/03 [facility] [employer]-BC Present Treatments Results and Location in Medical Record [X] IV Vasotec 2.5 mg JUN 23 [X] Aspirin 325 mg oral JUN 23 [X] Catapress 0.1 mg oral JUN 23 [X] Neurology Consult Consult Dr Zhang 03/04 [employer]ator Signature: Nicky Bah Phone #: ext [phone] Date/Time: 03/08/2020 0446 This is a permanent part of the Medical Record [facility]
== END 2020-03-05 18:39 | disposition home health service (06) | DRG 69 ==
LOC: ERS 11:37 → ERHOLD 13:43 → OBSVTOIN 13:43 → 2SE 15:13
PROVIDERS: ADMIT Internal Medicine; ATTEND Hospitalist
DX: G45.9 Transient cerebral ischemic attack, unspecified (principal); I69.354 Hemiplegia and hemiparesis following cerebral infarction affecting left non-dominant side; I16.1 Hypertensive emergency; F22 Delusional disorders; Z20.828 Contact with and (suspected) exposure to other viral communicable diseases; I10 Essential (primary) hypertension; Z91.19 Patient's noncompliance with other medical treatment and regimen; Z98.51 Tubal ligation status; I69.328 Other speech and language deficits following cerebral infarction; Z88.5 Allergy status to narcotic agent; Z88.2 Allergy status to sulfonamides; Z79.899 Other long term (current) drug therapy; I69.322 Dysarthria following cerebral infarction
CPT/HCPCS: 36415; 36416; 70450; 70496; 70498; 70551; 72170; 80048; 80053; 80061; 81001; 82550; 83735; 84443; 84484; 85025; 85610; 85730; 87635; 93005; 93306; 95712; 95819; 95957; 96372; 96374; 96376; G0378; J1650; Q9967; U0003

== ENCOUNTER 2024-05-18 08:42 | Emergency (ER) | payer MEDICARE ==
[2024-05-18] MEDS ORDERED: Acetaminophen 500 MG TAB ONE (10:02)
[2024-05-18] MEDS ORDERED: hydrALAZINE 20 MG/ML VIAL ONE (10:03)
[2024-05-18 10:50] LABS: #Basophils 0.03 10x3/uL (0.0-0.2); %Basophils 0.4 % (0.0-1.0); %Eosinophils 0.8 % (0.0-10.0); %Lymphocytes 25.6 % (21.0-51.0); %Monocytes 5.5 % (0.0-10.0); %Neutrophils 67.6 % (42.0-75.0); Hematocrit 39.5 % (36.0-47.0); Hemoglobin 13.2 g/dL (12.0-16.0); Mean Corpuscular HGB CONC 33.4 g/dL (32.0-36.0); Mean Corpuscular Hemoglobin 30.1 pg (27.0-31.0); Mean Corpuscular Volume 90.2 fL (78.0-98.0); Mean Platelet Volume 10.7 fL (7.4-10.4); Platelet Count 242 10x3/uL (130-400); RBC Distribution Width 12.7 % (11.5-14.5); Red Blood Cell (RBC) Count 4.38 mill/uL (4.20-5.40)
[2024-05-18 11:09] LABS: ALT (SGPT) Less than 7 U/L (Less than 34); AST (SGOT) 19 U/L (11-34); Albumin 3.8 g/dL (3.1-4.5); Alkaline Phosphatase 62 U/L (40-110); Anion Gap 16 mmol/L (10-20); BUN (Urea Nitrogen) 14 mg/dL (9.8-20.1); Bilirubin, Total 0.9 mg/dL (0.3-1.2); Calc. Creatinine Clearance 0 mL/min (70-130); Calcium 9.2 mg/dL (7.8-10.44); Carbon Dioxide 29 mmol/L (23-31); Chloride 102 mmol/L (98-107); Estimated GFR 76; Globulin 3.5 g/dL (2.4-3.5); Glucose 97 mg/dL (80-115); Potassium 2.9 mmol/L (3.5-5.1); Protein, Total 7.3 g/dL (5.8-8.1); Sodium 144 mmol/L (136-145)
[2024-05-18 11:29] LABS: Troponin I 0.018 ng/mL (< 0.028)
[2024-05-18 13:25] LABS: Bilirubin Negative (Negative); Blood, Urine Negative (Negative); CAUTI Indications for Culture < 2yrs of age; Clarity Turbid (Clear); Glucose, Urine (Dipstick) Normal (Negative); Ketone, Urine Negative (Negative); Leukocyte Negative Leu/uL (Negative); Nitrite Negative (Negative); Protein, Urine (Dipstick) Negative (Neg-Trace); RBC/HPF 0-3 HPF (0-3); Specific Gravity, Urine 1.011 (1.002-1.036); Squamous Epithelial 0-3 HPF (0-3); Urobilinogen Normal mg/dL (Less than 2); WBC/HPF 0-3 HPF (0-3)
[2024-05-18 13:34] LABS: Bacteria/HPF 1+ HPF (None Seen)
[2024-05-18 13:35] LABS: Yeast-Budding None Seen HPF (None Seen)
[2024-05-18 13:37] LABS: Urine Culture Reflex Yes Yes
== END 2024-05-18 13:00 | disposition home or self-care (01) ==
LOC: ERS 08:42
DX: S01.81XA Laceration without foreign body of other part of head, initial encounter (principal); S70.02XA Contusion of left hip, initial encounter; I10 Essential (primary) hypertension; W01.198A Fall on same level from slipping, tripping and stumbling with subsequent striking against other object, initial encounter; Y93.01 Activity, walking, marching and hiking; Y92.89 Other specified places as the place of occurrence of the external cause; Z86.73 Personal history of transient ischemic attack (TIA), and cerebral infarction without residual deficits
CPT/HCPCS: 12013; 70450; 71045; 72125; 80053; 81001; 83880; 84484; 85025; 87086; 93005; 96374; 96376; 99284; J0360; 36415